=== PATIENT | male | born 1950 | race Caucasian/White ===

== ENCOUNTER 2025-08-15 12:33 | Outpatient (CLI) | payer MEDICARE, OTHER, SELFPAY ==
--- OUTSIDE RECORDS SUMMARY | 2024-05-18 09:00 | XMS_ITS ---
Author Organization [facility] Address [address] [address] Care Team Providers Care Forestry Faculty Member Name Role Phone Simone THOMAS, Reinaldo Primary Care Provider Lisa vailaTsering Scruggs Unavailable [phone] REASON FOR VISIT 6 week follow up Encounters Encounter Location Date Provider Diagnosis [facility] [address] [phone] 05/18/2024 Tsering Rob Plan Of Treatment No Information Progress Notes * Paco SALAMANCA VDOB: 2 (75 yo M)Acc No.[id number]:05/18/2024 Progress Notes Patient: Paco PARR V Provider: Roxanna Rob DPM, DABPM :1950 A ge:73 Y S ex:Male Date:05/18/2024 Address:[address], [facility] Pcp:Reinaldo Nichols MD Subjective: * Chief Complaints: * 1 . 6 week follow up. * Medical History: Objective: * Vitals: Assessment: Plan: * Treatment: * Billing Information: * Visit Code: * Procedure Codes: * Electronic signature of Shahida Rob DPM DABPM on 08/15/2025 at 01:45 PM BATTERY STACKER Sign off status: Pending * Provider: Roxanna Rob DPM, DABPM Date: 0 05/18/2024 Generated for Darryl oliver/Gely/eTransmitting on: 1 10/15/2024 01:45 PM BATTERY STACKER
--- OUTSIDE RECORDS SUMMARY | 2025-02-01 04:00 | XMS_ITS ---
Author Organization [facility] Address [address] [place] [address] Care Team Providers Care Mattress And Foundation Sewer Name Role Phone Simone THOMAS, Reinaldo Primary Care Provider Lisa vailaTsering Scruggs Unavailable [phone] REASON FOR VISIT 6 month f/u Encounters Encounter Location Date Provider Diagnosis [facility] [address] [place] [phone] 02/01/2025 Tsering Rob Plan Of Treatment No Information Progress Notes * Paco SALAMANCA VDOB: [birth year] (75 yo M)Acc No.[id number]:02/01/2025 Progress Notes Patient: Paco PARR V Provider: Roxanna Rob DPM, DABPM :1950 A ge:74 Y S ex:Male Date:02/01/2025 Address:[address], [id number] Pcp:Reinaldo Nichols MD Subjective: * Chief Complaints: * 1 . 6 month f/u. * Medical History: Objective: * Vitals: Assessment: Plan: * Treatment: * Billing Information: * Visit Code: * Procedure Codes: * Electronic signature of Shahida Rob DPM DABPM on 08/15/2025 at 01:45 PM WINE MASTER Sign off status: Pending * Provider: Roxanna Rob DPM, DABPM Date: 0 02/01/2025 Generated for Darryl oliver/Gely/Mylesitting on: 10/15/2024 01:45 PM WINE MASTER
--- NOTE | ~2025-08-15 | PE_ITS ---
EXAMINATION: PET_PETPSMAST_PT DATE: 08/15/2025 14:52 INDICATION: Prostate cancer TECHNIQUE: 5.072 mCi of Illucix Ga-[id number]) was administered i.v. Low dose computed tomography (CT) images were acquired from the base of the brain to the base of the brain to the proximal thighs for attenuation correction and anatomic localization. Positron emission tomography (PET) images were acquired in the same distribution beginning 77 minutes after injection. Images including fused PET/CT images were reconstructed in axial, coronal, and sagittal planes. Automated exposure control technique was employed. The dose-length product was 914.28mGy-cm. COMPARISON: None FINDINGS: Head/neck: Typical pattern of symmetric physiologic increased activity in the lacrimal, parotid and submandibular glands as well as along the mucosa of the nasal and oral cavities, pharynx and hypopharynx. No pathologically enlarged cervical lymphadenopathy or suspicious foci of increased uptake in the visualized head or neck. Incidentally noted bilateral deep brain stimulators in expected position. Chest: Moderate biapical pleural-parenchymal scarring. Additional mild bibasilar atelectasis. No pneumonia, suspicious pulmonary nodules or pleural effusion. Heart size is normal. No pericardial effusion. Thoracic aorta is normal in caliber. No pathologically enlarged or PSMA avid thoracic lymphadenopathy. Abdomen/pelvis/proximal thighs: Physiologic renal accumulation and excretion of activity in the kidneys, bladder and along portions of ureters. Prostatomegaly measuring 5.1 x 3.6 cm. There is an approximately 1.5 cm region of prominent increased PSMA activity slightly to the left of midline in the anterior prostate with maximal SUV of 26.4 consistent with primary prostate cancer. Normal degree and slightly heterogenous pattern of increased uptake throughout the liver and spleen without radiologic correlate or dominant PSMA avid lesion. The gallbladder, pancreas and bilateral adrenal glands are normal. Moderate uptake scattered throughout the bowels with typical duodenal and proximal jejunal predominance and without radiologic correlate, also likely physiologic. Normal appendix. Scattered colonic diverticulosis without adjacent from trace stranding to suggest diverticulitis. No other abnormal foci of increased uptake or pathologically enlarged lymphadenopathy in the abdomen, pelvis or proximal thighs. Musculoskeletal: Moderate cervical, thoracic and lumbar spondylosis. Reverse right total shoulder arthroplasty. No suspicious lytic, blastic or abnormally PSMA avid bone lesions. IMPRESSION: 1. Region of intense uptake in the anterior prostate consistent with primary prostate cancer. No evident metastatic disease. Reviewed, dictated and finalized at location A. 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 Region of intense uptake in the anterior prostate consistent with primary pr ostate cancer. No evident metastatic disease.
--- OUTSIDE RECORDS SUMMARY | 2025-08-15 13:45 | XMS_ITS | Clinical Summary ---
Author Organization [facility] [employer] [facility] [employer] Address [address] [facility] [place] [address] Care Team Providers Care Promos Executive Producer Name Role Phone Reinaldo Nichols MD Primary Care Provide r Source Comments [facility] [employer] [facility] [employer] [place],non-owned Affiliates and Associated Physician Practices is amultiple site organization consisting of ambulatory clinics and hospital sitesin [place], [place], [place] and [place]. This disclosure is being madepursuant to the Care Everywhere program and may not contain all information available regarding this patient. Last updated 18.[facility] [employer] [facility] [employer] [place] Allergies No known active allergies Medications * Be aware that medications may not be up to date on this document. Alwaysverify current medications with the patient. carbidopa-levo dopa (Sinemet) 25-100 MG tablet Take 2 (two) tablets by mouth 3 times daily Active carbidopa-levo dopa CR (Sinemet CR) 50-200 MG tablet Take 1 (one) tablet by mouth at bedtime Active entacapone (Comtan) 200 MG tablet Take 1 (one) tablet by mouth 3 times daily Active amantadine (Symmetrel) 100 MG capsule Take 1 (one) capsule by mouth once daily Active desvenlafaxine succinate ER 24hr (Pristiq) 50 MG tablet Take 1 (one) tablet by mouth at bedtime Active traZODone (Desyrel) 50 MG tablet Take 1.5 (one and one-half) tablets by mouth at bedtime Active clonazePAM (KlonoPIN) 1 MG tablet Take 1 (one) tablet by mouth at bedtime Active Probiotic Product (PROBIOTIC DAILY PO) Take 1 tablet by mouth once daily Active psyllium (Metamucil) 58.6 % powder Take 1 (one) packet by mouth once daily as needed for Constipation Active docusate sodium (Colace) 100 MG capsule Take 2 (two) capsules by mouth once daily as needed for Constipation Active fluticasone propionate (Flonase) 50 MCG/ACT nasal spray [place] 1 (one) spray into each nostril at bedtime Active Artificial Tear Solution (GENTEAL TEARS OP) 1 drop by Ophthalmic route at bedtime Active Vitamin D3 10 MCG (400 UNIT) capsule Take 1 (one) capsule by mouth once daily Active finasteride (Proscar) 5 MG tablet Take 1 (one) tablet by mouth once daily Active melatonin 3 MG tablet Take 1 (one) tablet by mouth at bedtime Active acetaminophen (Tylenol) 500 MG tablet Take 1 (one) tablet by mouth every 4 hours as needed for Fever or Pain Maximum allowable Acetaminophen amount = 4 Grams (4000 mg) / 24 hours. Active Active Problems No known active problems Social History Tobacco Use Types Packs/Day Years Used Date Smoking Tobacco: Former Cigarettes Q uit: 01/11/1971 Smokeless Tobacco: Never Alcohol Use Standard Drinks/Week Comments Yes 0 (1 standard drink = 0.6 oz pur e alcohol) rarely AUDIT-C Answer Date Recorded Q1: How often do you have a drink containing alcohol? Never 01/29/2024 Q2: How many drinks containi ng alcohol do you have on a typical day when you are drinking? Patient does not drink Q3: How often do you have si x or more drinks on one occasion? 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 Gender Identity Not on file Sexual Orientation Not on file Last Filed Vital Signs Vital Sign Reading Time Taken Comments Blood Pressure 126/63 01/29/2024 10:00 AM CDT Pulse 50 01/29/2024 9:15 AM CDT Temperature 36.8 C (98.2 F) 01/29/2024 9:15 AM CDT Respiratory Rate 15 01/29/2024 10:00 AM CDT Oxygen Saturation 100% 01/29/2024 10:00 AM CDT Inhaled Oxygen Concentration - - Weight 74.6 kg (164 lb 7.4 oz) 01/29/2024 6:21 A M CDT Height 162.6 cm (5' 4) 01/29/2024 6:21 AM CDT Body Mass Index 28.23 01/29/2024 6:21 AM CDT Plan of Treatment Health Maintenance Due Date Last Done Comments COLOGUARD (AGES 45-75) - COLON CA SCREENING 1950 COLON MONITORING 1950 COLONOSCOPY - COLON CA SCREENING 1950 CT COLONOGRAPHY - COLON CA SCREENING 1950 Colorectal Cancer Screening 1950 FIT - COLON CA SCREENING 1950 FLEX SIG - COLON CA SCREENING 1950 LIPID TESTING 1950 MEDICARE AWV 12 MONTHS 1950 HEPATITIS C SCREENING 06/19/1970 DTAP/TDAP/TD VACCINES (1 - Tdap) 1971 PNEUMOCOCCAL VACCINE 50+ (1 of 1 - PCV) 2002 ZOSTER VACCINE (1 of 2) 2002 AAA SCREENING 2017 DEPRESSION SCREENING 10/13/2024 COVID-19 VACCINE ( - season) 2025 08/15/2022, 02/21/2022, 08/08/2021, Additional history exists INFLUENZA VACCINE (#1) 2025 9, 07/24/2018, 07/17/2017, Additional history exists Respiratory Syncytial Virus (RSV) Vaccine Pt: or over 60 yrs (1 - 1-dose 75+ series) 2027 HEPATITIS B VACCINE Aged Out No longe r eligible based on patient's age to complete this topic HIB VACCINE Aged Out No longer eligi ble based on patient's age to complete this topic HPV VACCINE Aged Out No longer eligi ble based on patient's age to complete this topic MENINGOCOCCAL (Group B) VACCINE SHARED DECISION-MAKING Aged Out No longer eligible based on patient's age to complete this topic MENINGOCOCCAL GROUPS A/C/Y/W VACCINE Aged Out No longer eligible based on patient's age to complete this topic Insurance [employer] MEDICARE [employer] Care Teams Promos Executive Producer Relationship Specialty [place] [address] [place] [id number] PCP - General Pediatrics 01/29/24
--- OUTSIDE RECORDS SUMMARY | 2025-08-15 13:45 | XMS_ITS | Encounter Summary ---
Author Organization [facility] Address [address] [place] [address] Care Team Providers Care Embedded Nurse Name Role Phone Reinaldo Nichols MD Primary Care Provider Encounter Details Date Type Department Care Team (Late st Contact Info) Description 06/27/2021 Telephone 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
--- OUTSIDE RECORDS SUMMARY | 2025-08-15 13:46 | XMS_ITS | Clinical Summary ---
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 posture, short stride, freezing of gait on turning. The motor UPDRS score today was 26 in Dec 2020. - Diagnostic impression: Mr. Salamanca has longstanding Parkinson's disease and has dealt with motor fluctuations as a major aspect of managing this condition. His current regimen adequately controls his symptoms for most of the day, and he is content with the current level of control. I am inclined to keep the medication regimen unchanged because the times when there is an off state do not occur reliably, and because he feels well for most of the day. - Falls: these are rare and do not require adjustments of medications. PLAN (phrased as addressed to the patient): - Continue carbidopa/levodopa 25/100, 2 tabs 4x/day - Continue trazodone 50 mg at bedtime - Cont. clonazepam 0.5 mg tabs, 1 tabs at bedtime. - Contact my office if your tremor becomes worse and bothersome. This encounter's total wvap-zt-plas time was greater than 60 minutes. I spent more than 50% of this time in counseling and/or coordination of care as documented in the note. The patient visit started at 1435 and ended at 1536. Greater than 50% of the visit was spent on counseling and coordinating care. Patient was counseled on rationals for keeping the carbidopa/levodopa regimen unchanged. NOTE: The present note includes, below, the line Ambulatory referral to Neurology. This statement is included as a mandatory component of the note template that I do not have the ability to remove. This statement has no clinical significance. I am NOT ordering a referral to Neurology. 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 03/18/20 23 04/02/2023 Encounters Date Type Department Care Team Description 08/02/2025 9:15 AM CDT - 08/02/2025 10:00 AM CDT Surgery [facility] Operating Room [address] [place] [phone] Bobby Nagy MD URONAV Guided Prostate Biopsy 08/02/2025 9:14 AM CDT Anesthesia Event [facility] Operating Room [address] [place] [phone] Benjamin Mallory MD Lorusso, Chynna Janae, CRNA 08/02/2025 7:26 AM CDT - 08/02/2025 5:31 PM CDT Hospital Encounter [address] [phone] Bobby Nagy MD Malignant neoplasm of prostate (HCC) Discharge Disposition: Discharge to home or self care 07/19/2025 2:00 PM CDT Pre-Admission Testing [facility] Pre Anesthesia Testing [address] [place] [phone] 07/05/2025 Telephone [facility] Movement Disorders [address] [facility] 7th [place] [address] Karla Elizabeth RN 06/27/2025 2:[address] [facility] Medical Office Bldg 1 OP Occupational Therapy [address] [facility] [address] [place] [address] Asuncion Barbour OT Parkinson's disease, unspecified whether dyskinesia present, unspecified whether manifestations fluctuate (HCC) (Primary Dx) 06/27/[address] [facility] Medical Office Bldg 1 OP Occupational Therapy [address] [facility] [address] [place] [address] 06/27/2025 Orders Only [facility] Movement [facility] [address] [facility] 6th [place] [address] [place] [address] Nataliya Thakkar am, MD 06/27/2025 Telephone [facility] Movement [facility] [address] [facility] 7th [place] [address] Jenniffer Subramanian RN 06/20/2025 Documentation [facility] Movement [facility] [address] [place] [address] Alexandria Bauer CMA 05/18/2025 Orders Only [facility] Movement [facility] [address] [facility] 7th [place] [address] Nataliya Thakkar am, MD Parkinson's disease with dyskinesia and fluctuating manifestations (HCC) (Primary Dx) from Last 3 Months Immunizations Immunization Administration Dates Next Due H1N1 Inj 07/13/2015 Influenza, Quadrivalent, Spl it, Preservative Free, Intramuscular 07/17/2017,07/19/2016 Influenza, Trivalent, High D ose, Split, Preservative Free, Intramuscular 08/09/2020,08/16/2019,07/25/2018,07/24 Influenza, Trivalent, IM (MDV) 07/27/2017,2015 Influenza, Unspecified 07/17/2015,08/31/2014,01/2013 Moderna SARS-CoV-2 Monovalen t Vaccination (12+ YRS) 11/22/2020 Pneumococcal Conjugate PCV 13 07/29/2018 Pneumococcal Polysaccharide PPV23 09/25/2015,,07/13/2014 Tdap 02/12/2023,04/26/2014 ZOSTER Recombinant 02/15/2022,11/27/2021 Surgical History Surgery Date Site/Laterality Comments TOTAL SHOULDER ARTHROPLASTY 12/11/2022 - 01/10/2023 Right DEEP BRAIN STIMULATOR PLACEMENT Medical History Medical History Date Comments Bladder problem Parkinson's disease (HCC) BPH (benign prostatic hyperplasia) 04/02/2023 Major depressive disorder 07/11/2015 S/P deep brain stimulator placement 06/30/2023 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 Monthly or less 07/19/2025 Q2: How many drinks containi ng alcohol do you have on a typical day when you are drinking? 1 or 2 07/19/2025 Q3: How often do you have si x or more drinks on one occasion? Never 07/19/2025 Personal Safety Answer Date Recorded Have you ever been in or are you currently in a harmful physical or emotional relationship or is someone making you feel afraid or unsafe? 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 Not on file Not on file Last Filed Vital Signs Vital Sign Reading Time Taken Comments Blood Pressure 126/65 08/02/2025 4:03 PM CDT Pulse 62 08/02/2025 4:03 PM CDT Temperature 36.2 C (97.2 F) 08/02/2025 4:03 PM CDT Respiratory Rate 16 08/02/2025 4:03 PM CDT Oxygen Saturation 98% 08/02/2025 4:03 PM CDT Inhaled Oxygen Concentration - - Weight 78.8 kg (173 lb 11.6 oz) 08/02/2025 8:14 AM CDT Height 177.8 cm (5' 10) 08/02/2025 8:14 AM CDT Body Mass Index 24.93 08/02/2025 8:14 AM CDT Plan of Treatment Health Maintenance Due Date Last Done Comments Colon Cancer Screening-Colonoscopy 1950 Hepatitis C Screening 1950 Hepatitis B Screening 1970 Well Visit 65+ 2017 Pneumococcal vaccine 65+ (3 of 3 - PCV20 or PCV21) 07/29/2023 07/29/2018, 09/25/2015, 08/31/2014, Additional history exists Covid-19 Vaccine (5 - 2024-2 6 season) 2025 02/21/2022, 08/08/2021, 12/20/2020, Additional history exists Depression Screening 09/15/2025 09/15/2024 Fall Risk Assessment 08/02/2026 08/02/2025 DTaP/Tdap/Td Vaccine (3 - Td or Tdap) 02/12/2033 02/12/2023, 04/26/2014 Zoster Vaccine Completed 02/15/2022, 11/27/2021 Abdominal Aortic Aneurysm (A AA) Screen Completed 05/09/2025, 04/28/2024 Influenza Vaccine Completed 08/04/2025, , 08/09/2020, Additional history exists Medical Devices Implanted Type Area Diesel Engineer Device Identifier Shelf Expiration Date Model / Serial / Lot Medtronic Dbs Leads ([id number] S 40) Implanted:Qty: 2 Lead Brain Medtronic Neuro 3389 S 40 / / Medtronic Neurostimulator Dbs-08/11/2016 Implanted: 016 by Unknown, Notinfile (Quantity not on file) Neurostimulator Head Medtronic Neuro 14891 KYLIE CUMMINGS / / Description:Mangaged by [facility] [employer] Full Body Eligible 1.5T Pt knows device must be turned off and on pre and post MRI exams JL 05/29/21 Medtronic Inc Battery Generator Neurostimulator Deep Brain Stimulation [facility] [id number] - [id number] - [id number] Implanted:Qty: 1 on 04/14/2023 by Denise Decker MD at [facility] Right: Chest Med[employer]onic Inc [id number] 03/09/2025 [id number] / [id number] / Procedures Procedure Name Priority Date/Time Associated Diagnosis Comments SURGICAL PATHOLOGY Routine 08/02/2025 9: 19 AM CDT Malignant neoplasm of prostate (HCC) URONAV GUIDED PROSTATE BIOPSY 08/02/2025 9:14 AM CDT Malignant neoplasm of prostate (HCC) from Last 3 Months Results * Surgical pathology (08/02/2025 9:19 AM CDT) Tissue (Prostate, Needle Biopsy) 08/02/2025 9:19 AM CDT Tissue specimen (specimen) (Prostate, Needle Biopsy) 08/02/2025 9:19 AM CDT Tissue specimen (specimen) (Prostate, Needle Biopsy) 08/02/2025 9:19 AM CDT Tissue specimen (specimen) (Prostate, Needle Biopsy) 08/02/2025 9:19 AM CDT Tissue specimen (specimen) (Prostate, Needle Biopsy) 08/02/2025 9:19 AM CDT Tissue specimen (specimen) (Prostate, Needle Biopsy) 08/02/2025 9:19 AM CDT Tissue specimen (specimen) (Prostate, Needle Biopsy) 08/02/2025 9:19 AM CDT Tissue specimen (specimen) (Prostate, Needle Biopsy) 08/02/2025 9:19 AM CDT Tissue specimen (specimen) (Prostate, Needle Biopsy) 08/02/2025 9:19 AM CDT Tissue specimen (specimen) (Prostate, Needle Biopsy) 08/02/2025 9:19 AM CDT Tissue specimen (specimen) (Prostate, Needle Biopsy) 08/02/2025 9:19 AM CDT Tissue specimen (specimen) (Prostate, Needle Biopsy) 08/02/2025 9:19 AM CDT Tissue specimen (specimen) (Prostate, Needle Biopsy) 08/02/2025 9:24 AM CDT Tissue specimen (specimen) (Prostate, Needle Biopsy) 08/02/2025 9:25 AM CDT Narrative PATHOLOGY [facility] - 08/03/2025 12:50 PM CDT [address] [address] Tele: Viktoriya Olvera MD - Supervisor Baking Note to Patients: This report may contain a detailed description of human tissue sent by a health care provider to the laboratory for pathologic evaluation. The content of this report is essential for diagnosis and may provide important critical findings. This information may be unfamiliar to patients to review without a medical professional present. It is advised that the patient review this report in the presence of a health care provider who can answer questions and explain the details. SURGICAL PATHOLOGY REPORT Patient Name: JASON SALAMANCA V. Address: [address] [place] [address]- Gender: M : 1950 (Age: 75) Service: Surgery Location: [place] [address], Hospital #: [id number] Patient Type: [facility] OP IN BED Taken: 08/02/2025 Received 08/02/2025 Reported: 08/03/2025 Physician(s): Marlon Quispe M.D. DIAGNOSIS: Prostate, right lateral base, needle biopsy: - Benign prostatic tissue Prostate, right medial base, needle biopsy: - Benign prostatic tissue Prostate, right lateral mid, needle biopsy: - Benign prostatic tissue Prostate, right medial mid, needle biopsy: - Benign prostatic tissue Prostate, right lateral apex, needle biopsy: - Benign prostatic tissue Prostate, right medial apex, needle biopsy: - Benign prostatic tissue Prostate, left lateral base, needle biopsy: - Benign prostatic tissue Prostate, left medial base, needle biopsy: - Benign prostatic tissue Prostate, left lateral mid, needle biopsy: - Benign prostatic tissue Prostate, left medial mid, needle biopsy: - Benign prostatic tissue Prostate, left lateral apex, needle biopsy: - Benign prostatic tissue Prostate, left medial apex, needle biopsy: - Benign prostatic tissue Prostate, ORTIZ 1, needle biopsy: - Adenocarcinoma, [place] grade 4+5= score 9, in one of four cores, measuring 0.5 cm in length and involving 8% of the needle core tissue Prostate, ORTIZ 2, needle biopsy: - Adenocarcinoma, [place] grade 5+5 = score 10, in one of four cores, measuring 0.2 cm in length, involving 6% of the needle core tissue [facility]/08/03/2025 12:50 Examining Pathologist: Radha Macario M.D. Report Reviewed and Electronically Signed By Radha Macario M.D. SPECIMEN TYPE: A: RIGHT LATERAL BASE B: RIGHT MEDIAL BASE C: RIGHT LATERAL MID D: RIGHT MEDIAL MID E: RIGHT LATERAL APEX F: RIGHT MEDIAL APEX G: LEFT LATERAL BASE H: LEFT MEDIAL BASE I: LEFT LATERAL MID J: LEFT MEDIAL MID K: LEFT LATERAL APEX L: LEFT MEDIAL APEX M: ORTIZ 1 N: ORTIZ 2 CLINICAL IMPRESSION AND HISTORY: Malignant neoplasm of prostate GROSS DESCRIPTION: A. Received in formalin labeled JASON SALAMANCA and right lateral base is a portion of Telfa paper containing a 1.1 cm in length morales tissue core. The specimen is wrapped in filter paper and entirely submitted in A1. B. Received in formalin labeled JASON ABREUKER and right medial base is a portion of Telfa paper containing two tissue cores, 0.3 and 0.4 cm in length. The specimen is wrapped in filter paper and entirely submitted in B1. C. Received in formalin labeled JASON ABREUKER and right lateral mid is a portion of Telfa paper containing a 1.4 cm in length morales tissue core. The specimen is wrapped in filter paper and entirely submitted in C1. D. Received in formalin labeled JASON ABREUKER and right medial mid is a portion of Telfa paper containing two morales tissue cores, 0.5 and 0.8 cm in length. The specimen is wrapped in filter paper and entirely submitted in D1. E. Received in formalin labeled JASON ABREUKER and right lateral apex is a portion of Telfa paper containing a 1 cm in length morales tissue core. The specimen is wrapped in filter paper and entirely submitted in E1. F. Received in formalin labeled JASON ABREUKER and right medial apex is a portion of Telfa paper containing a 1.1 cm in length morales tissue core. The specimen is wrapped in filter paper and entirely submitted in F1. G. Received in formalin labeled JASON ABREUKER and left lateral base is a portion of Telfa paper containing a 1.1 cm in length morales tissue core. The specimen is wrapped in filter paper and entirely submitted in G1. H. Received in formalin labeled JASON HEMKER and left medial base is a portion of Telfa paper containing a 2.2 cm in length morales tissue core. The specimen is wrapped in filter paper and entirely submitted in H1. I. Received in formalin labeled JASON HEMKER and left lateral mid is a portion of Telfa paper containing a 1.3 cm in length omrales tissue core. The specimen is wrapped in filter paper and entirely submitted in I1. J. Received in formalin labeled JASON HEMKER and left medial mid is a portion of Telfa paper containing a 1.4 cm in length morales tissue core. The specimen is wrapped in filter paper and entirely submitted in J1. K. Received in formalin labeled JASON HEMKER and left lateral apex is a portion of Telfa paper containing a 1.2 cm in length moarles tissue core. The specimen is wrapped in filter paper and entirely submitted in K1. L. Received in formalin labeled JASON HEMKER and left medial apex is a portion of Telfa paper containing a 1.4 cm in length morales tissue core. The specimen is wrapped in filter paper and entirely submitted in L1. M. Received in formalin labeled JASON HEMKER and ORTIZ 1 is a portion of Telfa paper containing multiple morales tissue cores ranging from 1.5-1.9 cm in length. The specimen is wrapped in filter paper and entirely submitted in M1. N. Received in formalin labeled JASON HEMKER and ORTIZ 2 is a portion of Telfa paper containing multiple morales tissue cores ranging from 0.6-2.4 cm in length. The specimen is wrapped in filter paper and entirely submitted in N1. jxi/08/02/2025 11:33 ,JXI MICROSCOPIC DESCRIPTION: Microscopic examination supports the above captioned diagnosis. Clerical Data Follows A; 65223 B; 76971 C; 31708 D; 39157 E; 58557 F; 01511 G; 78191 H; 84192 I; 18269 J; 11443 K; 79996 L; 45101 M; 03494 N; 50076 REPORT IMAGES AND/OR SCANNED DOCUMENTS ONLY VIEWABLE IN PDF FORMAT The immunohistochemical test(s) cited in this report, if any, was developed and its performance characteristics determined by [facility] Pathology Department. It has not been cleared or approved by the U.S. Food and Drug Administration. The FDA has determined that such clearance or approval is not necessary. This test is used for clinical purposes. It should not be regarded as investigational or for research. [facility] Laboratory is certified under the Clinical Laboratory Improvement Amendments of 1988 (CLIA) as qualified to perform high complexity testing. Immunostains were performed on formalin-fixed paraffin embedded tissue using a polymer diaminobenzidine chromogen detection system. Antibodies used may include clone SP1 (rabbit monoclonal, estrogen receptor), clone 1E2 (rabbit monoclonal progesterone receptor), Ki-67 (rabbit monoclonal, 30-9), CD117 (rabbit polyclonal, c-kit), and anti-Her-2/daphne (4B5) (rabbit monoclonal primary antibody). In the event that immunohistochemistry or special stains have been performed, attending physician has confirmed appropriateness of controls. Frozen section, operating room consultation, gross examination and dissection, and case sign out may have been performed in part or completely in the following laboratories: [facility], [facility] [place] [address]. Bobby Nagy MD LAB PATHOLOGY ORDERA BLES Final Result PATHOLOGY [facility] Laboratory Receiving [address] [place] [address] from Last 3 Months Insurance MEDIC[facility] COMMERCIAL [facility] MEDICARE COMMERCIAL GENERIC Advance Directives For more information, please contact: [phone] * Full Code (Latest Code Status on File) Date Activated Date Inactivated Comments 08/02/2025 11:13 AM 08/02/2025 9:36 PM Care Teams Web Graphic Designer Relationship Specialty Start Date End Date Reinaldo Nichols MD PCP - General Internal Medicine 12/10/19
--- OUTSIDE RECORDS SUMMARY | 2025-08-15 13:46 | XMS_ITS | Clinical Summary ---
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 Phone Unavailable Primary Care Provider Unavailabl e Allergies No known active allergies Social History Tobacco Use Types Packs/Day Years Used Date Smoking Tobacco: Never Assessed Sex and Gender Information Value Date Recorded Sex Assigned at Not on file Legal Sex Male 1:14 PM CDT Gender Identity Not on file Sexual Orientation Not on file Last Filed Vital Signs Vital Sign Reading Time Taken Comments Blood Pressure - - Pulse - - Temperature - - Respiratory Rate - - Oxygen Saturation - - Inhaled Oxygen Concentration - - Weight 71.7 kg (158 lb) 06/15/2015 1:30 PM CDT Height - - Body Mass Index - - Plan of Treatment Health Maintenance Due Date Last Done Comments DTAP/TDAP/TD VACCINES (1 - Tdap) 1971 COLORECTAL SCREENING 1997 Colorectal Cancer Screening 1997 FIT-DNA Q 3 years 1997 FIT/FOBT Q 1 year 1997 Flex Sig/CT Colonography Q 5 years 1997 PNEUMOCOCCAL VACCINE 50+ YEARS (1 of 1 - PCV) 06/23/20 02 ZOSTER VACCINE (1 of 2) 2002 INFLUENZA VACCINE (#1) 2025 RSV VACCINE (60+ or ) (1 - 1-dose 75+ series) 2027
--- OUTSIDE RECORDS SUMMARY | 2025-08-15 13:46 | XMS_ITS | Patient Health Record ---
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 Nasal; Duration: 90 Days Active traZODone HCl 50 MG TAKE 1&1/2 TABLETS B Y MOUTH AT BEDTIME Oral; Duration: 90 Days Active clonazePAM 1 MG TAKE 1 TABLET BY YUNIOR TH EVERYDAY AT BEDTIME Oral; Duration: 90 Days Active Desvenlafaxine Succinate ER 50 MG TAKE 1 TABLET BY MOUTH EVERY DAY Oral; Duration: 90 Days Active Entacapone 200 MG PLEASE SEE ATTACHED FOR DETAILED DIRECTIONS Oral; Duration: 90 Days Active Amantadine HCl 100 MG TAKE 1 CAPSULE BY MOUTH IN THE MORNING AND TAKE 1 CAPSULE BY MOUTH AT NOON Oral; Duration: 90 Days Active Carbidopa-Levodopa ER 50-200 MG TAKE 2 TABLETS BY MOUTH AT BEDTIME Oral; Duration: 90 Days Active Carbidopa-Levodopa 25-100 MG TAKE 2 TABS AT 0700, 1130, 0430, 2000 AND IN THE MIDDLE OF THE NIGHT Oral; Duration: 90 Days Active Tylenol 11/18/2023 Active Naproxen 250 MG TAKE 1 TABLET BY YUNIOR TH TWICE A DAY WITH FOOD OR MILK; Duration: 30 Active Social History Tobacco Use: Social History Observation Description Date Details (start date - stop date) Former Smoker NA - NA Tobacco Use/Smoking Question Answer Notes Tobacco use: former smoker Problems Problem Type SNOMED Code ICD Code Onset Dates Problem Status W/U Status Risk Notes Problem Plantar wart (04511369) Plantar wart (B07.0) Active confirmed Problem Acquired hammer toe of left foot (8886550482266 103) Hammer toe of left foot (M20.42) Active confirmed Problem Acquired hammer toe of right foot (3122732650715 105) Hammer toe of right foot (M20.41) Active confirmed Problem Acquired hallux valgus (26281880) Hallux valgus, left (M20.12) Active confirmed Vital Signs Weight-kg 72.57 kg 02/22/2025 Height 70 in 02/22/2025 Weight 160 lbs 02/22/2025 BMI 22.96 kg/m2 02/22/2025 Encounters Encounter Location Date Provider Diagnosis [facility] [address] [place], [place] [id number] 11/23/2024 [place] [place] Plantar wart B07.0 [facility] [address] [place], [place] [id number] 12/07/2024 T[facility] [place] Plantar wart B07.0 [facility] [address] [place] [id number] 12/28/2024 [facility] [place] Plantar wart B07.0 [facility] [address] [place], [place] [id number] 02/08/2025 [facility] [place] Plantar wart B07.0 [facility] [address] [place], [place] [id number] 02/22/2025 [facility] [place] Plantar wart B07.0 Assessments Encounter Date Diagnosis (ICD Code) Assessment Notes Treatment Notes Treatment Clinical Notes Section Notes 11/23/2024 Plantar wart (ICD-10 - B07.0) Surgical debridement of plantar wart with sterile 15 blade to bleeding base. Lumicain. Applied 55% salinocaine and occlusion. Keep intact 24 hours. Bandaid daily as needed. Call with any problems. 12/07/2024 Plantar wart (ICD-10 - B07.0) Surgical debridement of plantar wart with sterile 15 blade to bleeding base. Lumicain. Applied 55% salinocaine and occlusion. Keep intact 24 hours. Bandaid daily as needed. Call with any problems. 12/28/2024 Plantar wart (ICD-10 - B07.0) Surgical debridement of plantar wart with sterile 15 blade to bleeding base. Lumicain. Applied 55% salinocaine and occlusion. Keep intact 24 hours. Bandaid daily as needed. Call with any problems. 02/08/2025 Plantar wart (ICD-10 - B07.0) Surgical debridement of plantar wart with sterile 15 blade to bleeding base. Lumicain. Applied 55% salinocaine and occlusion. Keep intact 24 hours. Bandaid daily as needed. Call with any problems. 02/22/2025 Plantar wart (ICD-10 - B07.0) Surgical debridement of plantar wart with sterile 15 blade to bleeding base. Lumicain. Applied 55% salinocaine and occlusion. Keep intact 24 hours. Bandaid daily as needed. Call with any problems. Plan Of Treatment No Information Insurance Providers Payer Name Payer Address Payer Phone Subscriber Number Group Number Insured Name Patient Relationship to Insured Coverage Start Date Coverage End Date [place] [employer] [address] [place] [address] [phone] [id number] Paco Frausto Self - patient is the insured [facility] [address] [place], [place] [id number] Paco Frausto Self - patient is the insured [facility] [address] [place] [address] [id number] Paco Frausto Self - patient is the insured [place] [employer] [address] [place] [address] [phone] [id number] Paco Frausto Self - patient is the insured [facility] [place] [phone] [id number] Paoc Frausto Self - patient is the insured Self Pay [address] [facility] [place] [address] [phone] Paco Frausto Self - patient is the insured Medical (General) History Medical History History ICD Code Parkinson Surgical History Surgery Date(Month/Year) R hammertoe correction 2-5 Rt ankle Hernia x2 L bunionectomy / hammertoe correction 2- 5
== END 2025-08-15 12:34 | disposition home or self-care (01) ==
PROVIDERS: PCP Pediatrics; Visit Provider Urology
DX: C61 Malignant neoplasm of prostate (principal)
CPT/HCPCS: 78815; A9596